=== PATIENT | male | born 1955 | race Caucasian/White ===

== ENCOUNTER 2024-11-15 14:30 | Outpatient (RCR) | payer MEDICARE, BC, SELFPAY | END 2025-03-15 23:59 | disposition home or self-care (01) | PROVIDERS: PCP Family Medicine; Visit Provider Family Medicine | DX: M25.512 Pain in left shoulder (principal); M19.90 Unspecified osteoarthritis, unspecified site; Z51.89 Encounter for other specified aftercare | CPT/HCPCS: 97110; 97140; 97161; 97530 ==